=== PATIENT | male | born 1990 | race Asian ===

== ENCOUNTER 2017-03-08 10:03 | Emergency (ER) | payer OTHER ==
[~2017-03-08] VITALS: Ht 167.6 cm; Wt 73.8 kg
[2017-03-08 10:05] VITALS: BP 144/79
== END 2017-03-08 10:56 | disposition home or self-care (01) ==
LOC: ED 10:40
DX: J18.0 Bronchopneumonia, unspecified organism (principal)
CPT/HCPCS: 71020; 99284

== ENCOUNTER 2017-04-05 19:55 | Emergency (ER) | payer OTHER ==
[~2017-04-05] VITALS: Ht 167.6 cm; Wt 74.4 kg
[2017-04-05 20:45] LABS: HEMATOCRIT 45.4 % (39.2-51.8); HEMOGLOBIN 15.6 g/dL (13.7-18.0); WHITE BLOOD COUNT 7.1 x10^3/uL (3.4-10)
[2017-04-05 20:55] LABS: ASPARTATE AMINO TRANSFERASE 20 U/L (15-37); BLOOD UREA NITROGEN 12 mg/dL (7-18)
[2017-04-05 21:33] VITALS: BP 129/74
== END 2017-04-05 21:35 | disposition home or self-care (01) ==
LOC: ED 21:28
DX: J30.2 Other seasonal allergic rhinitis (principal); Z87.891 Personal history of nicotine dependence
CPT/HCPCS: 36415; 71010; 80053; 85025; 93005; 99285

== ENCOUNTER 2017-05-04 17:55 | Emergency (ER) | payer OTHER ==
[~2017-05-04] VITALS: Ht 160 cm; Wt 77.4 kg
[2017-05-04 17:56] VITALS: BP 146/86
== END 2017-05-04 19:16 | disposition home or self-care (01) ==
LOC: ED 18:30
DX: H65.02 Acute serous otitis media, left ear (principal); H72.92 Unspecified perforation of tympanic membrane, left ear; J45.909 Unspecified asthma, uncomplicated
CPT/HCPCS: 99283

== ENCOUNTER 2017-05-10 18:31 | Emergency (ER) | payer OTHER ==
[~2017-05-10] VITALS: Ht 167.6 cm; Wt 76.1 kg
[2017-05-10 18:33] VITALS: BP 131/83
== END 2017-05-10 19:29 | disposition home or self-care (01) ==
LOC: ED 19:15
DX: H66.012 Acute suppurative otitis media with spontaneous rupture of ear drum, left ear (principal); G44.319 Acute post-traumatic headache, not intractable; H93.12 Tinnitus, left ear; J45.909 Unspecified asthma, uncomplicated
CPT/HCPCS: 99283

== ENCOUNTER 2017-05-17 17:06 | Emergency (ER) | payer OTHER ==
[~2017-05-17] VITALS: Ht 167.6 cm; Wt 75.9 kg
[2017-05-17 17:12] VITALS: BP 125/79
== END 2017-05-17 17:48 | disposition home or self-care (01) ==
LOC: ED 17:32
DX: H92.02 Otalgia, left ear (principal); H90.12 Conductive hearing loss, unilateral, left ear, with unrestricted hearing on the contralateral side; H72.92 Unspecified perforation of tympanic membrane, left ear
CPT/HCPCS: 99281

== ENCOUNTER 2017-05-31 23:03 | Emergency (ER) | payer OTHER | END 2017-05-31 23:08 | disposition left against medical advice (07) | LOC: ED 23:04 | DX: Z53.21 Procedure and treatment not carried out due to patient leaving prior to being seen by health care provider (principal) ==

== ENCOUNTER 2017-06-28 13:26 | Emergency (ER) | payer OTHER ==
[~2017-06-28] VITALS: Ht 167.6 cm; Wt 78.8 kg
[2017-06-28 13:32] VITALS: BP 137/91
[2017-06-28] MEDS ORDERED: DOCUSATE 50 MG/5 ML ORAL SOL PO ONE (14:00)
== END 2017-06-28 14:48 | disposition home or self-care (01) ==
LOC: ED 14:43
DX: H93.12 Tinnitus, left ear (principal); H66.92 Otitis media, unspecified, left ear; J45.909 Unspecified asthma, uncomplicated
CPT/HCPCS: 70450; 99284